=== PATIENT | male | born 1990 | race Caucasian/White ===

== ENCOUNTER 2022-07-01 20:03 | Emergency (ER) | payer OTHER ==
[~2022-07-01] VITALS: Ht 160 cm; Wt 88.6 kg
[2022-07-01 21:00] VITALS: BP 128/78
[2022-07-01] MEDS ORDERED: PERTUSS(ACELL),DIPH,TET VAC/PF 0.5 ML SYRINGE IM. ONE (21:00)
[2022-07-01] MEDS ORDERED: DOXYCYCLINE HYCLATE 100 MG TABLET PO ONE (21:00)
[2022-07-01] MEDS ORDERED: ACETAMINOPHEN 500 MG TABLET PO ONE (21:15)
[2022-07-01] MEDS ORDERED: DOXY-354 PO (21:19)
== END 2022-07-01 21:48 | disposition home or self-care (01) ==
LOC: EMS 20:06
DX: S61.210A Laceration without foreign body of right index finger without damage to nail, initial encounter (principal); F12.90 Cannabis use, unspecified, uncomplicated; Z87.442 Personal history of urinary calculi; Z98.890 Other specified postprocedural states; W26.8XXA Contact with other sharp object(s), not elsewhere classified, initial encounter; Y93.89 Activity, other specified; Y92.89 Other specified places as the place of occurrence of the external cause; Y99.8 Other external cause status
CPT/HCPCS: 12001; 90471; 90715; 99283